=== PATIENT | female | born 1945 ===

== ENCOUNTER → 2024-03-20 | Outpatient (CLI) | payer MEDICARE | END | disposition home or self-care (01) | LOC: MRI 10:24 | PROVIDERS: ATTEND Physician Assistant Medical | DX: M47.27 Other spondylosis with radiculopathy, lumbosacral region (principal); M51.16 Intervertebral disc disorders with radiculopathy, lumbar region; M43.16 Spondylolisthesis, lumbar region; M54.50 Low back pain, unspecified; M48.07 Spinal stenosis, lumbosacral region | CPT/HCPCS: 72148 ==